=== PATIENT | female | born 1955 | race Caucasian/White ===

== ENCOUNTER 2018-10-06 12:46 | Emergency (ER) | payer BC ==
[2018-10-06 13:07] VITALS: RESP 18
--- NOTE | 2018-10-06 14:10 | ED ---
Psych HPI - General Chief Complaint: Psychiatric Symptoms Stated Complaint: EPS eval Time Seen by Provider: 10/06/18 13:26 Source: patient, RN notes reviewed, old records reviewed Mode of arrival: ambulatory - History of Present Illness Initial Comments: This patient's a 62-year-old female who presents emergency department today with her and son. They brought her here for EPS evaluation. Patient reportedly has been smelling gas smell for the past month and called the police and fire department last night while the house and was sleeping to evaluate the house. They determined it was safe there is no gas leak in the house. Patient states family is just this could be related to a psychiatric reason as to why she smelling this. He also reports she's been having some episodes of labile emotional behavior occasionally acting manic and then later depressed. She's had history of psychiatric illness over 10 years ago. She denies any suicidal or homicidal ideation. She denies any auditory or visual hallucinations. She also reports she is currently being treated for sinus infection. - Related Data Home Medications Medication Instructions Recorded Confirmed Amoxicillin 500 mg PO Q8HR 10/06/18 10/06/18 Baclofen [Lioresal] 10 mg PO HS 10/06/18 10/06/18 Ibuprofen [Motrin Ib] 200 mg PO DAILY PRN 10/06/18 10/06/18 Allergies Allergy/AdvReac Type Severity Reaction Status Date / Time iodine Allergy Rash/Hives Verified 10/06/18 13:33 latex Allergy Rash/Hives Verified 10/06/18 13:33 Review of Systems ROS Statement: Those systems with pertinent positive or pertinent negative responses have been documented in the HPI. ROS Other: All systems not noted in ROS Statement are negative. Past Medical History Past Medical History: No Reported History History of Any Multi-Drug Resistant Organisms: None Reported Past Surgical History: No Surgical Hx Reported Past Psychological History: Depression Smoking Status: Current every day smoker Past Alcohol Use History: None Reported Past Drug Use History: None Reported General Exam - General Exam Comments Initial Comments: This is a 62-year-old female. Alert and oriented 3. No distress. Limitations: no limitations General appearance: alert, in no apparent distress Head exam: Present: atraumatic Eye exam: Present: normal appearance, PERRL, EOMI. Absent: scleral icterus, conjunctival injection, periorbital swelling ENT exam: Present: normal exam, mucous membranes moist Neck exam: Present: normal inspection. Absent: tenderness, meningismus, lymphadenopathy Respiratory exam: Present: normal lung sounds bilaterally. Absent: respiratory distress, wheezes, rales, rhonchi, stridor Cardiovascular Exam: Present: regular rate, normal rhythm, normal heart sounds. Absent: systolic murmur, diastolic murmur, rubs, gallop, clicks GI/Abdominal exam: Present: soft, normal bowel sounds. Absent: distended, tenderness, guarding, rebound, rigid Extremities exam: Present: normal inspection, full ROM, normal capillary refill. Absent: tenderness, pedal edema, joint swelling, calf tenderness Back exam: Present: normal inspection Neurological exam: Present: alert, oriented X3, CN II-XII intact Psychiatric exam: Present: normal affect, normal mood Skin exam: Present: warm, dry, intact, normal color. Absent: rash Course Vital Signs 10/06/18 13:01 Temperature 98.4 F Pulse Rate 85 Respiratory 18 Rate Blood Pressure 166/100 O2 Sat by Pulse 98 Oximetry Medical Decision Making - Medical Decision Making 62-year-old female. - Lab Data Lab Results 10/06/18 Range/Units 12:32 Urine Color Light Yellow Urine Appearance Clear (Clear) Urine pH 5.5 (5.0-8.0) Ur Specific [place] 1.004 (1.001-1.035) Urine Protein Negative (Negative) Urine Glucose (UA) Negative (Negative) Urine Ketones Trace H (Negative) Urine Blood Trace H (Negative) Urine Nitrite Negative (Negative) Urine Bilirubin Negative (Negative) Urine Urobilinogen <2.0 (<2.0) mg/dL Ur Leukocyte Esterase Negative (Negative) Urine RBC <1 (0-5) /hpf Urine Opiates Screen Not Detected (NotDetected) Ur Oxycodone Screen Not Detected (NotDetected) Urine Methadone Screen Not Detected (NotDetected) Ur Propoxyphene Screen Not Detected (NotDetected) Ur Barbiturates Screen Not Detected (NotDetected) U Tricyclic Antidepress Not Detected (NotDetected) Ur Phencyclidine Scrn Not Detected (NotDetected) Ur Amphetamines Screen Not Detected (NotDetected) U Methamphetamines Scrn Not Detected (NotDetected) U Benzodiazepines Scrn Not Detected (NotDetected) Urine Cocaine Screen Not Detected (NotDetected) U Marijuana (THC) Screen Not Detected (NotDetected) - Radiology Data Radiology results: report reviewed No acute injury cranial hemorrhage or midline shift. Mild bilateral frontal lobe atrophy. Chronic bilateral maxillary sinus disease. Disposition Clinical Impression: Sinusitis Disposition: HOME SELF-CARE Condition: Good Instructions (If sedation given, give patient instructions): Sinusitis (ED) Additional Instructions: Patient advised to have close follow-up with primary care physician on Monday. Continue her antibiotics. Apply that amount of antibiotic ointment over the area. Is patient prescribed a controlled substance at d/c from ED?: No Referrals: Christo Helms MD [Primary Care Provider] - 1-2 days Time of Disposition: 15:56
[2018-10-06 14:59] LABS: Appearance,Urine Clear (Clear); Bilirubin,Urine Negative (Negative); Blood,Urine Trace (Negative); Color,Urine Light Yellow; Glucose,Urine (UA) Negative (Negative); Ketones,Urine Trace (Negative); Leukocyte Esterase,Urine Negative (Negative); Nitrite,Urine Negative (Negative); PH, Urine 5.5 (5.0-8.0); Protein,Urine Negative (Negative); RBC,Urine <1 /hpf (0-5); Specific Gravity,Urine 1.004 (1.001-1.035); Urobilinogen,Urine <2.0 mg/dL (<2.0)
--- NOTE | 2018-10-06 15:02 | CT ---
EXAMINATION TYPE: CT brain wo con, CT sinus wo con DATE OF EXAM: 10/06/2018 HISTORY: EPS Eval; Infection odd smells (accession [id number]), Infection and Odd smells (accession [id number]), headache. Fever, facial pain. CT DLP: 1643.2 mGycm. Automated Exposure Control for Dose Reduction was Utilized. TECHNIQUE: CT scan of the head and sinuses are performed without contrast. COMPARISON: None. FINDINGS: There is no acute intracranial hemorrhage or midline shift identified. There is diffuse s ulcal prominence over bilateral frontal lobes consistent with diffuse frontal lobe atrophy. No hydroc ephalus. Birch-white matter differentiation fairly well maintained. Incidental scanning of the neck is performed without obvious abnormality. There is reversal of normal cervical curvature peaking at C5-C6 level with moderate disc space narrowing and advanced anterior s purring. There is moderate disc space narrowing and anterior spurring C6-C7 level also noted. There are small mucous retention cysts or polyps with mild mucosal thickening inferior right maxillar y sinus. There are larger mucous retention cysts or polyps filling the inferior aspect left maxillary sinus. Remainder of paranasal sinuses are clear without suspicious opacification. Ostiomeatal comple xes are patent bilaterally on the coronal images. IMPRESSION: No acute intracranial hemorrhage or midline shift. There is mild bilateral frontal lobe atrophy. There is chronic bilateral maxillary sinus disease.
[2018-10-06 15:08] LABS: Amphetamine Screen,Urine Not Detected (NotDetected); Barbiturate Screen,Urine Not Detected (NotDetected); Benzodiazepines Screen,Urine Not Detected (NotDetected); Cocaine Screen,Urine Not Detected (NotDetected); Methadone Screen, Urine Not Detected (NotDetected); Opiate Screen,Urine Not Detected (NotDetected); Oxycodone Screen, Urine Not Detected (NotDetected); Phencyclidine Screen,Urine Not Detected (NotDetected); Tricyclic Antidepressant,Urine Not Detected (NotDetected); Urn Cannabinoid Scrn Not Detected (NotDetected)
[2018-10-06 16:35] VITALS: BP 152/89; PULSE 88; TEMP 98.2
== END 2018-10-06 16:30 | disposition home or self-care (01) ==
LOC: EC 12:46
DX: J32.0 Chronic maxillary sinusitis (principal); F17.200 Nicotine dependence, unspecified, uncomplicated; Z79.899 Other long term (current) drug therapy; Z91.040 Latex allergy status; Z91.048 Other nonmedicinal substance allergy status
CPT/HCPCS: 70450; 70486; 80306; 81001; 99284

== ENCOUNTER 2023-04-03 15:01 | Inpatient (IN) | payer BC, MEDICARE ==
--- NOTE | 2023-04-03 15:39 | ED ---
SOB HPI - General Source: patient, RN notes reviewed Mode of arrival: wheelchair Limitations: no limitations - History of Present Illness MD Complaint: shortness of breath, cough <Nell Chapa - Last Filed: 04/03/23 15:38> <Ervin Gallegos - Last Filed: 04/03/23 18:21> - General Chief Complaint: Shortness of Breath Stated Complaint: BRODY,Dizziness Time Seen by Provider: 04/03/23 15:35 - History of Present Illness Initial Comments: This is a 67-year-old female who presents to the emergency department for shortness of breath. States that this has been occurring intermittently since January. Believes that part of this is from inhaling the fumes from her burning stove. Reports a productive cough of yellow and green sputum. Denies any chest pain. She does note swelling in her lower extremities. (Nell Chapa) Dictation was produced using [employer] dictation software. please excuse any grammatical, word or spelling errors. Chief Complaint: 67-year-old female past medical history of heart palpitations presents to the ER for shortness of breath History of Present Illness: Patient 67-year-old female she has no significant past medical history that she is aware of. She states she is here in the emergency department shortness of breath. She was seen at primary care physician's office approximately 2 weeks ago for a cough. States that her cough is productive. Primary care doctor prescribed her steroids and Z-Bharath. She states that her symptoms are not improved. She called her doctor today states that her symptoms not getting better. She was instructed to come to the emergency department for further workup. States that she has exertional dyspnea especially when she walks. She notices swelling in her legs. Feels like her symptoms are worse at night and in the morning and improves throughout the day. Denies any cardiac history. The ROS documented in this emergency department record has been reviewed and confirmed by me. Those systems with pertinent positive or negative responses have been documented in the HPI. All other systems are other negative and/or noncontributory. (Ervin Gallegos) - Related Data Home Medications Medication Instructions Recorded Confirmed Amoxicillin 500 mg PO Q8HR 10/06/18 10/06/18 Baclofen [Lioresal] 10 mg PO HS 10/06/18 10/06/18 Ibuprofen [Motrin Ib] 200 mg PO DAILY PRN 10/06/18 10/06/18 Allergies Allergy/AdvReac Type Severity Reaction Status Date / Time iodine Allergy Rash/Hives Verified 04/03/23 15:37 latex Allergy Rash/Hives Verified 04/03/23 15:37 Review of Systems ROS Other: All systems not noted in ROS Statement are negative. <Nell Chapa - Last Filed: 04/03/23 15:38> ROS Other: All systems not noted in ROS Statement are negative. <Ervin Gallegos - Last Filed: 04/03/23 18:21> ROS Statement: Those systems with pertinent positive or pertinent negative responses have been documented in the HPI. Past Medical History Past Medical History: No Reported History History of Any Multi-Drug Resistant Organisms: None Reported Past Surgical History: No Surgical Hx Reported Past Psychological History: Depression Smoking Status: Former smoker Past Alcohol Use History: None Reported Past Drug Use History: None Reported <Nell Chapa - Last Filed: 04/03/23 15:38> General Exam Limitations: no limitations <Nell Chapa - Last Filed: 04/03/23 15:38> <Ervin Gallegos - Last Filed: 04/03/23 18:21> - General Exam Comments Initial Comments: Visual Physical Exam Vital signs reviewed General: Well-appearing, nontoxic, no acute distress. Head: Normocephalic, atraumatic Eyes: PERRLA, EOMI ENT: Airway patent Chest: Nonlabored breathing Skin: No visual rash, normal skin tone Neuro: Alert and oriented 3 Musculoskeletal: No gross abnormalities (Nell Chapa) PHYSICAL EXAM: General Impression: Alert and oriented x3, not in acute distress HEENT: Normocephalic atraumatic, extra-ocular movements intact, pupils equal and reactive to light bilaterally, mucous membranes moist. Cardiovascular: Heart regular rate and rhythm Chest: Able to complete full sentences, no retractions, no tachypnea Abdomen: abdomen soft, non-tender, non-distended, no organomegaly Musculoskeletal: Pulses present and equal in all extremities, n 3+ pitting edema to the bilateral lower extremities Motor: no focal deficits noted Neurological: CN II-XII grossly intact, no focal motor or sensory deficits noted Skin: Intact with no visualized rashes Psych: Normal affect and mood (Ervin Gallegos) Course Vital Signs 04/03/23 15:35 Temperature 98.4 F Pulse Rate 55 L Respiratory 22 Rate Blood Pressure 135/66 O2 Sat by Pulse 96 Oximetry Medical Decision Making <Nell Chapa - Last Filed: 04/03/23 15:38> - Lab Data Result diagrams: 04/03/23 15:38 04/03/23 15:38 <Ervin Gallegos - Last Filed: 04/03/23 18:21> - Medical Decision Making I performed the QuickNote portion of this chart. Signed Nell Chapa PA-C. (Nell Chapa) Was pt. sent in by a medical professional or institution ([facility], WIRE INSULATOR, urgent care, hospital, or fci...) When possible be specific @ -From primary care provider Did you speak to anyone other than the patient for history (EMS, parent, family, police, friend...)? What history was obtained from this source @ -No Did you review nursing and triage notes (agree or disagree)? Why? @ -I reviewed and agree with nursing and triage notes Were old charts reviewed (outside hosp., previous admission, EMS record, old EKG, old radiological studies, urgent care reports/EKG's, fci records)? Report findings @ -No old charts were reviewed Differential Diagnosis (chest pain, altered mental status, abdominal pain women, abdominal pain men, vaginal bleeding, musculoskeletal, weakness, fever, dyspnea, syncope, headache, dizziness, GI bleed, back pain, seizure, CVA, palpatations, mental health)? @ -Differential Dyspnea: Coronary syndrome, arrhythmia, tamponade, asthma, COPD, pulmonary embolism, pneumonia, pneumothorax, pulmonary effusion, anaphylaxis, diabetic ketoacidosis, flailed chest, pulmonary contusion, diaphragmatic rupture, anemia, neuromuscular, this is not meant to be an all-inclusive list. EKG interpreted by me (3pts min.). @ -My EKG interpretation: Ventricular rate 78, sinus rhythm,. 169, QRS 167, QTc 436. No MO prolongation, no QTC prolongation, no ST or T-wave changes noted. Right bundle branch block with PVCs. Overall this EKG is nonspecific X-rays interpreted by me (1pt min.). @ -X-ray shows cardiomegaly CT interpreted by me (1pt min.). @ -None done U/S interpreted by me (1pt. min.). @ -None done What testing was considered but not performed or refused? (CT, X-rays, U/S, labs)? Why? @ -None What meds were considered but not given or refused? Why? @ -None Did you discuss the management of the patient with other professionals (professionals i.e. , PA, WIRE INSULATOR, lab, RT, psych nurse, licensed social worker, java solutions architect, teacher, general service officer, case sealer)? Give summary @ -Case discussed with hospitalist for admission Was smoking cessation discussed for >3mins.? @ -No Was critical care preformed (if so, how long)? @ -Yes, 33 minutes Were there social determinants of health that impacted care today? How? (Homelessness, low income, unemployed, alcoholism, drug addiction, transportation, low edu. Level, literacy, decrease access to med. care, retirement, rehab)? @ -No Was there de-escalation of care discussed even if they declined (Discuss DNR or withdrawal of care, Hospice)? DNR status @ -No What co-morbidities impacted this encounter? (DM, HTN, Smoking, COPD, CAD, Cancer, CVA, ARF, Chemo, Hep., AIDS, mental health diagnosis, sleep apnea, mo rbid obesity)? @ -None Was patient admitted / discharged? Hospital course, mention meds given and r oute, prescriptions, significant lab abnormalities, going to OR and other pertinent info. @ -67-year-old female presents to the emergency department with worsening shortness of breath ongoing for the last several months. She attributes the dyspnea to pneumonia and smoke exposure from woodstove. Vital signs are stable. She is not hypoxic. Not dyspneic at the bedside. She denies any symptoms w hile at rest. She does however have some features of unstable angina with exertional dyspnea. Her physical examination would suggest heart failure. Laboratory evaluation shows BNP of 15,900 with a troponin of 0.459. No old labs for comparison. Rest of labs within acceptable limits. Clinical presentation suggest that patient's dyspnea is secondary to cardiac cause. Patient given Lasix. She is given aspirin and heparin for concerns of unstable angina/nstemi. Patient will be admitted with consultation to cardiology. Undiagnosed new problem with uncertain prognosis? @ -No Drug Therapy requiring intensive monitoring for toxicity (Heparin, Nitro, Insulin, Cardizem)? @ -No Were any procedures done? @ -No Diagnosis/symptom? Acute, or Chronic, or Acute on Chronic? Uncomplicated (without systemic symptoms) or Complicated (systemic symptoms)? @ -new onset cardiomyopathy complicated by elevated troponin Side effects of treatment? @ -No Exacerbation, Progression, or Severe Exacerbation? @ -No Poses a threat to life or bodily function? How? (Chest pain, [place], [place], pneumonia, PE, COPD, DKA, ARF, appy, cholecystitis, CVA, Diverticulitis, Homicidal, Suicidal, threat to staff... and all critical care pts) @ -yes (Ervin Gallegos) - Lab Data Lab Results 04/03/23 04/03/23 04/03/23 Range/Units 15:38 15:38 15:38 WBC 7.9 (3.8-10.6) k/uL RBC 4.76 (3.80-5.40) m/uL Hgb 15.1 (11.4-16.0) gm/dL Hct 44.9 (34.0-46.0) % MCV 94.3 (80.0-100.0) fL MCH 31.7 (25.0-35.0) pg MCHC 33.6 (31.0-37.0) g/dL RDW 13.7 (11.5-15.5) % Plt Count 220 (150-450) k/uL MPV 9.4 Neutrophils % 54 % Lymphocytes % 34 % Monocytes % 7 % Eosinophils % 2 % Basophils % 1 % Neutrophils # 4.2 (1.3-7.7) k/uL Lymphocytes # 2.7 (1.0-4.8) k/uL Monocytes # 0.5 (0-1.0) k/uL Eosinophils # 0.1 (0-0.7) k/uL Basophils # 0.1 (0-0.2) k/uL Hypochromasia Slight PT 11.6 (10.0-12.5) sec INR 1.1 (<1.2) APTT 24.1 (22.0-30.0) sec Sodium 137 (137-145) mmol/L Potassium 3.7 (3.5-5.1) mmol/L Chloride 106 (98-107) mmol/L Carbon Dioxide 26 (22-30) mmol/L Anion Gap 5 mmol/L BUN 14 (7-17) mg/dL Creatinine 0.72 (0.52-1.04) mg/dL Est GFR (CKD-EPI)AfAm >90 (>60 ml/min/1.73 sqM) Est GFR (CKD-EPI)NonAf 88 (>60 ml/min/1.73 sqM) Glucose 94 (74-99) mg/dL Plasma Lactic Acid [place] (0.7-2.0) mmol/L Calcium 9.0 (8.4-10.2) mg/dL Total Bilirubin 0.8 (0.2-1.3) mg/dL AST 42 H (14-36) U/L ALT 40 H (4-34) U/L Alkaline Phosphatase 77 (38-126) U/L Troponin I (0.000-0.034) ng/mL NT-Pro-B Natriuret Pep 52742 pg/mL Total Protein 6.0 L (6.3-8.2) g/dL Albumin 3.3 L (3.5-5.0) g/dL Influenza Type A (PCR) (Not Detectd) Influenza Type B (PCR) (Not Detectd) RSV (PCR) (Not Detectd) SARS-CoV-2 (PCR) (Not Detectd) 04/03/23 04/03/23 04/03/23 Range/Units 15:38 15:38 15:38 WBC (3.8-10.6) k/uL RBC (3.80-5.40) m/uL Hgb (11.4-16.0) gm/dL Hct (34.0-46.0) % MCV (80.0-100.0) fL MCH (25.0-35.0) pg MCHC (31.0-37.0) g/dL RDW (11.5-15.5) % Plt Count (150-450) k/uL MPV Neutrophils % % Lymphocytes % % Monocytes % % Eosinophils % % Basophils % % Neutrophils # (1.3-7.7) k/uL Lymphocytes # (1.0-4.8) k/uL Monocytes # (0-1.0) k/uL Eosinophils # (0-0.7) k/uL Basophils # (0-0.2) k/uL Hypochromasia PT (10.0-12.5) sec INR (<1.2) APTT (22.0-30.0) sec Sodium (137-145) mmol/L Potassium (3.5-5.1) mmol/L Chloride (98-107) mmol/L Carbon Dioxide (22-30) mmol/L Anion Gap mmol/L BUN (7-17) mg/dL Creatinine (0.52-1.04) mg/dL Est GFR (CKD-EPI)AfAm (>60 ml/min/1.73 sqM) Est GFR (CKD-EPI)NonAf (>60 ml/min/1.73 sqM) Glucose (74-99) mg/dL Plasma Lactic Acid [place] 1.1 (0.7-2.0) mmol/L Calcium (8.4-10.2) mg/dL Total Bilirubin (0.2-1.3) mg/dL AST (14-36) U/L ALT (4-34) U/L Alkaline Phosphatase (38-126) U/L Troponin I 0.459 H* (0.000-0.034) ng/mL NT-Pro-B Natriuret Pep pg/mL Total Protein (6.3-8.2) g/dL Albumin (3.5-5.0) g/dL Influenza Type A (PCR) Not Detected (Not Detectd) Influenza Type B (PCR) Not Detected (Not Detectd) RSV (PCR) Not Detected (Not Detectd) SARS-CoV-2 (PCR) Not Detected (Not Detectd) Disposition <Nell Chapa - Last Filed: 04/03/23 15:38> Decision Time: 18:21 <Ervin Gallegos - Last Filed: 04/03/23 18:21> Clinical Impression: NSTEMI (non-ST elevated myocardial infarction), New onset of congestive heart failure Disposition: ADMITTED IP TO THIS HOSP Condition: Serious Referrals: Christo Helms MD [Primary Care Provider] - 1-2 days
--- NOTE | 2023-04-03 16:25 | XR ---
EXAMINATION TYPE: XR chest 2V DATE OF EXAM: 04/03/2023 COMPARISON: None INDICATION: Difficulty breathing DIPs and dizziness TECHNIQUE: Frontal and lateral views of the chest are obtained. FINDINGS: The heart size is markedly enlarged. The pulmonary vasculature is normal. The lungs are clear. IMPRESSION: 1. No acute pulmonary process. 2. Marked cardiomegaly
[2023-04-03 17:35] LABS: Basophils # (A) 0.1 k/uL (0-0.2); Basophils % (A) 1 %; Eosinophils # (A) 0.1 k/uL (0-0.7); Eosinophils % (A) 2 %; HCT 44.9 % (34.0-46.0); HGB 15.1 gm/dL (11.4-16.0); Hypochromasia Slight; INR 1.1 (<1.2); Lymphocytes # (A) 2.7 k/uL (1.0-4.8); Lymphocytes % (A) 34 %; MCH 31.7 pg (25.0-35.0); MCHC 33.6 g/dL (31.0-37.0); MCV 94.3 fL (80.0-100.0); Mean Platelet Volume 9.4; Monocytes # (A) 0.5 k/uL (0-1.0); Monocytes % (A) 7 %; Neutrophils # (A) 4.2 k/uL (1.3-7.7); Neutrophils % (A) 54 %; Partial Thromboplastin Time 24.1 sec (22.0-30.0); Platelet Count 220 k/uL (150-450); Prothrombin Time 11.6 sec (10.0-12.5); RBC 4.76 m/uL (3.80-5.40); RDW 13.7 % (11.5-15.5); WBC 7.9 k/uL (3.8-10.6)
[2023-04-03 17:44] LABS: ALT 40 U/L (4-34); AST 42 U/L (14-36); African American GFR (CKD) >90 (>60 ml/min/1.73 sqM); Albumin 3.3 g/dL (3.5-5.0); Alkaline Phosphatase 77 U/L (38-126); Anion Gap 5 mmol/L; Blood Urea Nitrogen 14 mg/dL (7-17); Carbon Dioxide 26 mmol/L (22-30); Chloride 106 mmol/L (98-107); Glucose 94 mg/dL (74-99); Non-African American GFR(CKD) 88 (>60 ml/min/1.73 sqM); Potassium 3.7 mmol/L (3.5-5.1); Sodium 137 mmol/L (137-145); Total Bilirubin 0.8 mg/dL (0.2-1.3)
[2023-04-03 17:49] LABS: NT-Pro-B-Type Natriuretic Pept 15900 pg/mL
[2023-04-03] MEDS ORDERED: HEPARIN SODIUM 1,000 UN/ML (10ML VL) IV PRN (18:14)
[2023-04-03] MEDS ORDERED: ASPIRIN 81 MG PO STA (18:14)
[2023-04-03] MEDS ORDERED: FUROSEMIDE 10 MG/ML 4 ML VIAL IV STA (18:14)
[2023-04-03] MEDS ORDERED: HEPARIN SODIUM 1,000 UN/ML (10ML VL) IV ONE (18:14)
[2023-04-03] MEDS ORDERED: NITROGLYCERIN SL TABS 0.4 MG TAB SUBLINGUAL PRN (18:15)
[2023-04-03] MEDS: HEPARIN SOD,PORK IN 0.45% NACL 25,000 UNIT in 0.45% NACL 1 250ML.BAG IV SCH (18:59)
--- NOTE | 2023-04-04 07:09 | P.HPIM ---
History of Present Illness This is a pleasant 67 years old female with no significant past medical history Presents because of shortness of breath and difficulty breathing on and off since last January, because she is not getting better and she cares for her family she decided to come to the hospital this time. Patient has occasional coughing but she denies chest pain She denies abdominal pain or other GI symptoms. No change in urine habits. No headache dizziness weakness numbness She denies smoking alcohol or illicit drugs. Vitals stable Labs are unremarkable including CBC INR, BMP, LFTs. Troponin is elevated at 0.4, 0.4, 0.56. ProBNP is elevated at 15 900 Influenza A and type B, RSV, SARS (coronavirus) are and detected Chest x-ray: No acute process with marked cardiomegaly, I reviewed chest x-ray myself and agree EKG showing sinus rhythm with no significant ST T changes rate at 78 but QTC elevated 536. Review of Systems Review of systems CONSTITUTIONAL: No fever, no malaise, no fatigue. HEENT: No recent visual problems or hearing problems. Denied any sore throat. CARDIOVASCULAR: No orthopnea, PND, no palpitations, no syncope. PULMONARY: , no chest wall tenderness, no hemoptysis. GASTROINTESTINAL: No diarrhea, no nausea, no vomiting, no abdominal pain. Normoactive bowel sounds. NEUROLOGICAL: No headaches, no weakness, no numbness. HEMATOLOGICAL: Denies any bleeding or petechiae. GENITOURINARY: Denies any burning micturition, frequency, or urgency. MUSCULOSKELETAL/RHEUMATOLOGICAL: Denies any joint pain, swelling, or any muscle pain. ENDOCRINE: Denies any polyuria or polydipsia. Past Medical History Past Medical History: No Reported History History of Any Multi-Drug Resistant Organisms: None Reported Past Surgical History: No Surgical Hx Reported Past Anesthesia/Blood Transfusion Reactions: No Reported Reaction Past Psychological History: Depression Smoking Status: Former smoker Past Alcohol Use History: None Reported Past Drug Use History: None Reported Medications and Allergies Home Medications Medication Instructions Recorded Confirmed Type Cyanocobalamin [Vitamin B-12] 500 mcg PO DAILY 04/03/23 04/03/23 History Losartan/Hydrochlorothiazide 1 tab PO DAILY 04/03/23 04/03/23 History [Losartan-Hctz 50-12.5 mg Tab] Multivitamins, Thera [Multivitamin 1 tab PO DAILY 04/03/23 04/03/23 History (formulary)] Allergies Allergy/AdvReac Type Severity Reaction Status Date / Time iodine Allergy Rash/Hives Verified 04/03/23 19:02 latex Allergy Rash/Hives Verified 04/03/23 19:02 Physical Exam Vitals: Vital Signs Temp Pulse Pulse Resp BP BP Pulse Ox 04/04/23 04:00 80 18 136/91 98 04/04/23 00:00 98.1 F 82 18 129/86 99 04/03/23 22:30 79 16 104/79 98 04/03/23 19:06 115/99 04/03/23 18:51 97.7 F 74 18 94 L 04/03/23 15:35 98.4 F 55 L 22 135/66 96 Intake and Output 04/03/23 04/03/23 04/04/23 14:59 22:59 06:59 Other: # Voids 2 Weight 65.771 kg 65.771 kg GENERAL: The patient is alert and oriented x3, not in any acute distress. Well developed, well nourished. HEENT: Pupils are round and equally reacting to light. EOMI. No scleral icterus. No conjunctival pallor. Normocephalic, atraumatic. No pharyngeal erythema. No thyromegaly. CARDIOVASCULAR: S1 and S2 present. No murmurs, rubs, or gallops. PULMONARY: Chest is clear to auscultation, no wheezing , no crackles. ABDOMEN: Soft, nontender, nondistended, normoactive bowel sounds. No palpable organomegaly. MUSCULOSKELETAL: No joint swelling or deformity. -EXTREMITIES: No cyanosis, clubbing, bilateral pitting leg edema. NEUROLOGICAL: Gross neurological examination did not reveal any focal deficits. SKIN: No rashes. no petechiae. Results CBC & Chem 7: 04/03/23 15:38 04/03/23 15:38 Labs: Abnormal Lab Results - Last 24 Hours (Table) 04/03/23 04/03/23 04/03/23 Range/Units 15:38 15:38 19:11 APTT (22.0-30.0) sec AST 42 H (14-36) U/L ALT 40 H (4-34) U/L Troponin I 0.459 H* 0.477 H* (0.000-0.034) ng/mL Total Protein 6.0 L (6.3-8.2) g/dL Albumin 3.3 L (3.5-5.0) g/dL 04/03/23 04/04/23 Range/Units 22:01 00:28 APTT 46.8 H (22.0-30.0) sec AST (14-36) U/L ALT (4-34) U/L Troponin I 0.560 H* (0.000-0.034) ng/mL Total Protein (6.3-8.2) g/dL Albumin (3.5-5.0) g/dL Thrombosis Risk Factor Assmnt - Choose All That Apply Any of the Below Risk Factors Present?: No Other Risk Factors: Yes Each Risk Factor Represents 2 Points: Age 61-74 years Thrombosis Risk Factor Assessment Total Risk Factor Score: 2 Thrombosis Risk Factor Assessment Level: Low Risk Assessment and Plan Assessment: Acute non-STEMI Possible acute CHF exacerbation Prolonged QTc Hypertension Bilateral pitting leg edema secondary to above Plan: Continue with heparin drip Continue with aspirin Cancer losartan/hydrochlorothiazide Cardiology consult Check echocardiogram Check ultrasound of the legs Start IV Lasix 40 mg daily Labs and medication were reviewed.. Continue same treatment. Continue with symptomatic treatment. Resume home medication. Monitor labs and vitals. DVT and GI prophylaxis. Further recommendations as per clinical course of the patient DVT prophylaxis: heparin GI Prophylaxis: Pepcid Prognosis is guarded
--- NOTE | 2023-04-04 07:48 | US ---
EXAMINATION TYPE: US venous doppler duplex LE DATE OF EXAM: 04/04/2023 7:08 AM COMPARISON: NONE CLINICAL INDICATION: Female, 67 years old with history of leg swelling; Patient denies any other sign s/symptoms/relevant history SIDE PERFORMED: Bilateral TECHNIQUE: The lower extremity deep venous system is examined utilizing real time linear array sonog evan with graded compression, doppler sonography and color-flow sonography. VESSELS IMAGED: Common Femoral Vein Deep Femoral Vein Greater Saphenous Vein * Femoral Vein Popliteal Vein Small Saphenous Vein * Proximal Calf Veins (* superficial vessels) Right Leg: Negative for DVT Left Leg: Negative for DVT IMPRESSION: Grayscale, color doppler, spectral doppler imaging performed of the deep veins of the lo wer extremities. There is normal flow, compressibility, vascular waveforms.
[2023-04-04] MEDS ORDERED: ASPIRIN 325 MG TAB PO SCH (09:00)
[2023-04-04] MEDS: FUROSEMIDE 10 MG/ML 4 ML VIAL IV SCH (10:29)
[2023-04-04] MEDS: LOSARTAN-HCTZ 50-12.5 MG 1 EACH TAB PO SCH (10:30)
[2023-04-04] MEDS: FAMOTIDINE 20 MG/2 ML VIAL IV SCH ×2 (10:37→20:35)
--- NOTE | 2023-04-04 11:35 | P.CRDCN ---
History of Present Illness Consult date: 04/04/23 Reason for Consult (text): NSTEMI, HF History of present illness: History of present illness: This is a 67-year-old female patient with no previous cardiac history and has not had a cardiac workup in the past. She has a past medical history of hypertension. Patient states that she has had difficulty breathing since mid January and thought it was mostly related to inhaling cold air. The shortness of breath comes and goes according to the coldest outside. She also complains of a sinus infection. She denies any fever or chills. She has had a cough. No production. She has had weight increase and also lower extremity edema. Jesse serra also complains of leg cramps that are chronic but seem to be better this morning after she has had improvement of the edema. She denies any alcohol use. She was a smoker and quit in fall 2022. Patient seen today in the emergency center waiting for bed on the cardiac stepdown unit. We have been asked to evaluate patient for heart failure non-ST MA. Patient has been started on IV Lasix 40 mg daily and heparin drip. EKG sinus rhythm with right bundle branch block, PVCs Chest x-ray: No acute finding. Marked cardiomegaly. Duplex ultrasound of the lower extremities negative for DVT. CBC, INR, electrolytes and renal function within normal limits. AST 42, ALT 40, alkaline phosphatase 77. Troponin 0.459, 0.477, 0.56. proBNP 15,900. Influenza A, influenza B, RSV, COVID-19 not detected. Home cardiac medications: Losartan/hydrochlorothiazide 50-12.5 mg daily Review Of Systems: At the time of my evaluation: Constitutional: No fever, no chills. No weakness, fatigue or lethargy. EENT: No headache. No dizziness. Lungs: + shortness of breath, + cough, no sputum production. No wheezing. Cardiovascular: No chest pain, + lower extremity edema. No palpitations. No paroxysmal nocturnal dyspnea. No orthopnea. No lightheadedness or dizziness. No syncopal episodes. Abdominal: No abdominal pain. No nausea, vomiting. No diarrhea. No constipation. No bloody or tarry stools. Genitourinary: No dysuria. No urinary retention. Musculoskeletal: No myalgias. No muscle weakness, no frequent falls. Integumentary: No wounds. No rash. No unusual bruising. Neurologic: No aphasia. No facial droop. No change in mentation. Physical examination: Gen: This is a 67-year-old female resting and appears to be in no acute distress VS: reviewed HEENT: Head is atraumatic, normocephalic. Pupils equal, round. Sclerae is anicteric. NECK: Supple. No JVD. LUNGS: Diminished breath sounds. No intercostal retractions. HEART: Regular rate and rhythm. No murmur. ABDOMEN: Soft No tenderness. EXTREMITIES: 2+ pedal edema. No calf tenderness. NEUROLOGICAL: Patient is awake, alert and oriented x3. Assessment: Acute heart failure, echocardiogram is pending NSTEMI Hypertension Plan: Continue patient on Heparin gtt for total of 48 hours Continue IV Lasix 40 mg daily Monitor I&O, daily weights, electrolytes and renal function Start patient on aspirin 81 mg daily, atorvastatin 40 mg at bedtime and metoprolol 12.5 mg twice daily Obtain 2-D echocardiogram and Doppler study to assess cardiac structure and function Discussed with patient the need for cardiac catheterization most likely will be performed in 2 days once her respiratory status is stabilized. No the patient does have an allergy to iodine which causes itching. Further recommendations to follow based upon clinical course Thank you kindly for this consultation. Nurse practitioner note has been reviewed, I agree with documented findings and plan of care. Patient was seen and examined. Past Medical History Past Medical History: No Reported History History of Any Multi-Drug Resistant Organisms: None Reported Past Surgical History: No Surgical Hx Reported Past Anesthesia/Blood Transfusion Reactions: No Reported Reaction Past Psychological History: Depression Smoking Status: Former smoker Past Alcohol Use History: None Reported Past Drug Use History: None Reported Medications and Allergies Home Medications Medication Instructions Recorded Confirmed Type Cyanocobalamin [Vitamin B-12] 500 mcg PO DAILY 04/03/23 04/03/23 History Losartan/Hydrochlorothiazide 1 tab PO DAILY 04/03/23 04/03/23 History [Losartan-Hctz 50-12.5 mg Tab] Multivitamins, Thera [Multivitamin 1 tab PO DAILY 04/03/23 04/03/23 History (formulary)] Allergies Allergy/AdvReac Type Severity Reaction Status Date / Time iodine Allergy Rash/Hives Verified 04/03/23 19:02 latex Allergy Rash/Hives Verified 04/03/23 19:02 Physical Exam Vitals: Vital Signs Temp Pulse Pulse Resp BP BP Pulse Ox 04/04/23 04:00 80 18 136/91 98 04/04/23 00:00 98.1 F 82 18 129/86 99 04/03/23 22:30 79 16 104/79 98 04/03/23 19:06 115/99 04/03/23 18:51 97.7 F 74 18 94 L 04/03/23 15:35 98.4 F 55 L 22 135/66 96 Intake and Output 04/03/23 04/04/23 04/04/23 22:59 06:59 14:59 Other: # Voids 2 Weight 65.771 kg 65.771 kg Results 04/03/23 15:38 04/03/23 15:38 Cardiac Enzymes 04/03/23 04/03/23 04/03/23 Range/Units 15:38 15:38 19:11 AST 42 H (14-36) U/L Troponin I 0.459 H* 0.477 H* (0.000-0.034) ng/mL 04/03/23 Range/Units 22:01 AST (14-36) U/L Troponin I 0.560 H* (0.000-0.034) ng/mL Coagulation 04/03/23 04/04/23 Range/Units 15:38 00:28 PT 11.6 (10.0-12.5) sec APTT 24.1 46.8 H (22.0-30.0) sec CBC 04/03/23 Range/Units 15:38 WBC 7.9 (3.8-10.6) k/uL RBC 4.76 (3.80-5.40) m/uL Hgb 15.1 (11.4-16.0) gm/dL Hct 44.9 (34.0-46.0) % Plt Count 220 (150-450) k/uL Comprehensive Metabolic Panel 04/03/23 Range/Units 15:38 Sodium 137 (137-145) mmol/L Potassium 3.7 (3.5-5.1) mmol/L Chloride 106 (98-107) mmol/L Carbon Dioxide 26 (22-30) mmol/L BUN 14 (7-17) mg/dL Creatinine 0.72 (0.52-1.04) mg/dL Glucose 94 (74-99) mg/dL Calcium 9.0 (8.4-10.2) mg/dL AST 42 H (14-36) U/L ALT 40 H (4-34) U/L Alkaline Phosphatase 77 (38-126) U/L Total Protein 6.0 L (6.3-8.2) g/dL Albumin 3.3 L (3.5-5.0) g/dL Current Medications Generic Name Dose Route Start Last Admin Trade Name Freq PRN Reason Stop Dose Admin Aspirin 325 mg 04/04/23 09:00 Aspirin 325 Mg Tab PO DAILY [facility] Famotidine 20 mg 04/04/23 09:00 Famotidine 20 Mg/2 Ml Vial IV Q12HR [facility] Furosemide 40 mg 04/04/23 09:00 Furosemide 10 Mg/Ml 4 Ml Vial IV DAILY [facility] HCTZ/Losartan Potassium 1 each 04/04/23 09:00 Losartan-Hctz 50-12.5 Mg 1 Each Tab PO DAILY [facility] Heparin Sodium (Porcine) 0 unit 04/03/23 18:14 Heparin Sodium 1,000 Un/Ml (10ml Vl) IV PER PROTOCOL PRN Low PTT Protocol Heparin Sodium/Sodium Chloride 250 mls @ 7.893 mls/hr 04/03/23 18:15 04/03/23 18:59 25,000 unit/ Sodium Chloride IV 12 units/kg/hr .Q24H [facility] 7.893 mls/hr Administration Protocol 12 UNITS/KG/HR Nitroglycerin 0.4 mg 04/03/23 18:15 Nitroglycerin Sl Tabs 0.4 Mg Tab SUBLINGUAL Q5M PRN Chest Pain Intake and Output 04/03/23 04/04/23 04/04/23 22:59 06:59 14:59 Other: # Voids 2 Weight 65.771 kg 65.771 kg 04/03/23 15:38 04/03/23 15:38
--- NOTE | 2023-04-04 12:37 | CA ---
Transthoracic Echo Report Name: Park Webb Age: 67 Gender: F : 1955 Exam Date: 04/04/2023 09:43 Exam Location: [facility] Ht (in): 65 Wt (lb): 145 Ordering Physician: Brendan Monteiro MD Attending/Referring Phys: [id number], Cayetano Lineman A Class Desmond Varma RDCS Procedure CPT: Indications: Rule out heart disease Cardiac Hx: Technical Quality: Fair Contrast 1: Total Dose (mL): Contrast 2: Total Dose (mL): MEASUREMENTS (Male / Female) Normal Values 2D ECHO LV Diastolic Diameter PLAX 7.0 cm 4.2 - 5.9 / 3.9 - 5.3 cm LV Systolic Diameter PLAX 6.6 cm IVS Diastolic Thickness 1.0 cm 0.6 - 1.0 / 0.6 - 0.9 cm LVPW Diastolic Thickness 1.4 cm 0.6 - 1.0 / 0.6 - 0.9 cm LV Relative Wall Thickness 0.3 RV Internal Dim ED PLAX 3.9 cm LVOT Diameter 2.3 cm Aortic Root Diameter 2.9 cm LA Systolic Diameter LX 2.8 cm 3.0 - 4.0 / 2.7 - 3.8 cm LV Diastolic Volume MOD BP 167.6 cm??? 67 - 155 / 56 - 104 cm??? LV Systolic Volume MOD BP 135.3 cm??? 22 - 58 / 19 - 49 cm??? LV Ejection Fraction MOD BP 19.3 % >= 55 % LV Cardiac Index MOD BP 1333.0 cm???/min???m??? LV Diastolic Volume MOD 4C 151.6 cm??? LV Systolic Volume MOD 4C 123.0 cm??? LV Ejection Fraction MOD 4C 18.8 % LV Cardiac Index MOD 4C 1178.1 cm???/min???m??? LV Diastolic Length 4C 7.6 cm LV Systolic Length 4C 7.6 cm LV Diastolic Volume MOD 2C 173.8 cm??? LV Systolic Volume MOD 2C 143.6 cm??? LV Ejection Fraction MOD 2C 17.4 % LV Cardiac Index MOD 2C 1245.6 cm???/min???m??? LV Diastolic Length 2C 8.2 cm LV Systolic Length 2C 7.9 cm LA Volume 102.5 cm??? 18 - 58 / 22 - 52 cm??? LA Volume Index 58.7 cm???/m??? 16 - 28 cm???/m??? DOPPLER AV Peak Velocity 118.1 cm/s AV Peak Gradient 5.6 mmHg LVOT Peak Velocity 39.4 cm/s LVOT Peak Gradient 0.6 mmHg LVOT Velocity Time Integral 6.6 cm LVOT Stroke Volume 26.8 cm??? LVOT Stroke Volume Index 15.5 ml/m??? LVOT Cardiac Index 1104.3 cm???/min???m??? AV Area Cont Eq pk 1.4 cm??? MV Peak Velocity 93.4 cm/s MV Peak Gradient 3.5 mmHg MV Mean Velocity 43.8 cm/s MV Mean Gradient 0.9 mmHg MV Velocity Time Integral 23.8 cm Mitral E Point Velocity 71.9 cm/s Mitral A Point Velocity 62.5 cm/s Mitral E to A Ratio 1.2 MV Deceleration Time 182.6 ms MV E' Velocity 3.7 cm/s Mitral E to MV E' Ratio 19.6 TR Peak Velocity 263.5 cm/s TR Peak Gradient 27.8 mmHg Right Ventricular Systolic Press 32.8 mmHg PV Peak Velocity 65.9 cm/s PV Peak Gradient 1.7 mmHg FINDINGS Left Ventricle Severe left ventricular dilatation. Normal wall thickness. Severely reduced LV systolic function Left ventricular ejection fraction is estimated at15-20 %. Right Ventricle Normal right ventricular size. RVSP= 33mmHg. Right Atrium Normal right atrial size. Left Atrium Severe left atrial dilatation. LA volume index= 59ml/m2 Mitral Valve Structurally normal mitral valve. Moderate MR. Aortic Valve Mild AV calcification/sclerosis. No aortic stenosis. No aortic regurgitation. LVOT stroke-volume 27 mL Tricuspid Valve Structurally normal tricuspid valve. Moderate TR. Pulmonic Valve Pulmonic valve not well visualized. Mild PI. Pericardium Grossly normal pericardium. Aorta Normal size aortic root. CONCLUSIONS Severe left ventricular dilatation. Severely reduced LV systolic function Left ventricular ejection fraction is estimated at 15-20 %. Severe left atrial dilatation. Moderate functional mitral regurgitation Dilated IVC and is non collapisble Previewed by: Dr Mckinley Anderson (Electronically Signed) Final Date: 04 April 2023 12:37
[2023-04-04] MEDS: METOPROLOL TARTRATE 12.5 MG TAB PO SCH ×2 (13:00→20:34)
[2023-04-04 13:44] LABS: Chol/HDL Ratio 2.82 Ratio; LDL Cholesterol,Calculated 78.3 mg/dL (0.0-131.0); VLDL Calculation 12.12 mg/dL (5.00-40.00)
[2023-04-04] MEDS: ATORVASTATIN 40 MG TAB PO SCH (20:34)
[2023-04-05] MEDS: HEPARIN SOD,PORK IN 0.45% NACL 25,000 UNIT in 0.45% NACL 1 250ML.BAG IV SCH (01:45)
[2023-04-05 07:07] LABS: ALT 32 U/L (4-34); AST 44 U/L (14-36); African American GFR (CKD) 68 (>60 ml/min/1.73 sqM); Alkaline Phosphatase 77 U/L (38-126); Anion Gap 6 mmol/L; Blood Urea Nitrogen 19 mg/dL (7-17); Calcium 8.5 mg/dL (8.4-10.2); Carbon Dioxide 29 mmol/L (22-30); Chloride 104 mmol/L (98-107); Glucose 110 mg/dL (74-99); Non-African American GFR(CKD) 59 (>60 ml/min/1.73 sqM); Potassium 3.2 mmol/L (3.5-5.1); Sodium 139 mmol/L (137-145); Total Bilirubin 0.8 mg/dL (0.2-1.3); Total Protein 5.7 g/dL (6.3-8.2)
[2023-04-05] MEDS: FUROSEMIDE 10 MG/ML 4 ML VIAL IV SCH ×3 (08:26→19:51)
[2023-04-05] MEDS: ASPIRIN 81 MG PO SCH (08:26)
[2023-04-05] MEDS: FAMOTIDINE 20 MG/2 ML VIAL IV SCH ×2 (08:26→19:49)
[2023-04-05] MEDS: LOSARTAN-HCTZ 50-12.5 MG 1 EACH TAB PO SCH (08:26)
[2023-04-05] MEDS: METOPROLOL TARTRATE 12.5 MG TAB PO SCH ×2 (08:26→19:49)
[2023-04-05] MEDS ORDERED: Magnesium Replacement Protocol 1 EACH MISC MISCELLANE PRN (09:51)
[2023-04-05] MEDS ORDERED: Potassium Replacement Protocol 1 EACH MISC MISCELLANE PRN (09:51)
--- NOTE | 2023-04-05 11:11 | P.PN ---
Subjective This is a pleasant 67 years old female with no significant past medical history Presents because of shortness of breath and difficulty breathing on and off since last January, because she is not getting better and she cares for her family she decided to come to the hospital this time. Patient has occasional coughing but she denies chest pain She denies abdominal pain or other GI symptoms. No change in urine habits. No headache dizziness weakness numbness She denies smoking alcohol or illicit drugs. Vitals stable Labs are unremarkable including CBC INR, BMP, LFTs. Troponin is elevated at 0.4, 0.4, 0.56. ProBNP is elevated at 15 900 Influenza A and type B, RSV, SARS (coronavirus) are and detected Chest x-ray: No acute process with marked cardiomegaly, I reviewed chest x-ray myself and agree EKG showing sinus rhythm with no significant ST T changes rate at 78 but QTC elevated 536. 04/05/2023 Patient is awake alert No chest pain, dyspnea is better Remains on heparin drip Remains on IV Lasix once daily Creatinine is stable and within the reference range Echocardiogram showing low ejection fraction 15-20% with moderate mitral regu rgitation [employer] are planning for cardiac cath in 24-48 hours Plan discussed with patient and she is agreeable Objective - Vital Signs Vital signs: Vital Signs Temp 97.6 F 04/05/23 08:00 Pulse 67 04/05/23 09:36 Resp 16 04/05/23 09:36 BP 111/67 04/05/23 08:00 Pulse Ox 98 04/05/23 08:00 FiO2 Intake & Output 04/04/23 04/05/23 04/05/23 18:59 06:59 18:59 Intake Total 448.696 183.304 240 Output Total 1300 Balance 448.696 183.304 -1060 Weight 61.8 kg Intake: Intake, IV Titration 208.696 65.304 Amount Heparin Sod,Pork in 0.45% 208.696 65.304 NaCl 25,000 unit In 0.45 % NaCl 1 250ml.bag @ 12 UNITS/KG/HR 7.893 mls/hr IV .Q24H [facility] Rx#: [id number] Oral 240 118 240 Output: Urine 1300 Other: Voiding Method Toilet Toilet # Voids 2 1 - Exam GENERAL: The patient is alert and oriented x3, not in any acute distress. Well developed, well nourished. HEENT: Pupils are round and equally reacting to light. EOMI. No scleral icterus. No conjunctival pallor. Normocephalic, atraumatic. No pharyngeal erythema. No thyromegaly. CARDIOVASCULAR: S1 and S2 present. No murmurs, rubs, or gallops. PULMONARY: Chest is clear to auscultation, no wheezing , no crackles. ABDOMEN: Soft, nontender, nondistended, normoactive bowel sounds. No palpable organomegaly. MUSCULOSKELETAL: No joint swelling or deformity. EXTREMITIES: No cyanosis, clubbing, or pedal edema. NEUROLOGICAL: Gross neurological examination did not reveal any focal deficits. SKIN: No rashes. no petechiae. - Labs CBC & Chem 7: 04/03/23 15:38 04/05/23 06:16 Labs: Abnormal Lab Results - Last 24 Hours (Table) 04/04/23 04/05/23 04/05/23 Range/Units 17:47 00:31 06:16 APTT 36.9 H 54.5 H 60.7 H (22.0-30.0) sec Potassium (3.5-5.1) mmol/L BUN (7-17) mg/dL Glucose (74-99) mg/dL AST (14-36) U/L Total Protein (6.3-8.2) g/dL Albumin (3.5-5.0) g/dL 04/05/23 Range/Units 06:16 APTT (22.0-30.0) sec Potassium 3.2 L (3.5-5.1) mmol/L BUN 19 H (7-17) mg/dL Glucose 110 H (74-99) mg/dL AST 44 H (14-36) U/L Total Protein 5.7 L (6.3-8.2) g/dL Albumin 3.0 L (3.5-5.0) g/dL Assessment and Plan Assessment: Acute non-STEMI acute CHF exacerbation, systolic with ejection fraction 15-20% Prolonged QTc Hypertension Bilateral pitting leg edema secondary to above Plan: Continue with heparin drip Continue with aspirin Continue losartan/hydrochlorothiazide Continue IV Lasix 40 mg once daily Cardiology consult clinic for cardiac cath Labs and medication were reviewed.. Continue same treatment. Continue with symptomatic treatment. Resume home medication. Monitor labs and vitals. DVT and GI prophylaxis. Further recommendations as per clinical course of the patient DVT prophylaxis: heparin GI Prophylaxis: Pepcid Prognosis is guarded
[2023-04-05] MEDS ORDERED: ALPRAZolam 0.5 MG TAB PO PRN (15:22)
[2023-04-05] MEDS ORDERED: ALPRAZolam 0.25 MG TAB PO PRN (15:22)
[2023-04-05] MEDS ORDERED: NITROGLYCERIN SL TABS 0.4 MG TAB SUBLINGUAL PRN (15:22)
--- NOTE | 2023-04-05 15:28 | P.PN ---
Subjective Progress Note Date: 04/05/23 Reason for Consult (text): NSTEMI, HF History of present illness: History of present illness: This is a 67-year-old female patient with no previous cardiac history and has not had a cardiac workup in the past. She has a past medical history of hyperte nsion. Patient states that she has had difficulty breathing since mid January and thought it was mostly related to inhaling cold air. The shortness of breath comes and goes according to the coldest outside. She also complains of a sinus infection. She denies any fever or chills. She has had a cough. No production. She has had weight increase and also lower extremity edema. Patient also complains of leg cramps that are chronic but seem to be better this morning after she has had improvement of the edema. She denies any alcohol use. She was a smoker and quit in fall 2022. Patient seen today in the emergency center waiting for bed on the cardiac stepdown unit. We have been asked to evaluate patient for heart failure non-ST [place]. Patient has been started on IV Lasix 40 mg daily and heparin drip. EKG sinus rhythm with right bundle branch block, PVCs Chest x-ray: No acute finding. Marked cardiomegaly. Duplex ultrasound of the lower extremities negative for DVT. CBC, INR, electrolytes and renal function within normal limits. AST 42, ALT 40, alkaline phosphatase 77. Troponin 0.459, 0.477, 0.56. proBNP 15,900. Influenza A, influenza B, RSV, COVID-19 not detected. Home cardiac medications: Losartan/hydrochlorothiazide 50-12.5 mg daily 04/05 Patient is seen today in follow-up on the cardiac stepdown unit. Patient has been maintained on heparin drip as well as IV Lasix 40 mg daily. Yesterday, patient was started on aspirin, atorvastatin and metoprolol. Blood pressure 105/65, heart rate is in the 60s. Potassium 3.2, sodium 139, BUN 19 creatinine 0.99. AST 99. Triglycerides 60, cholesterol 140, LDL 70, HDL 49. Reviewed results of echocardiogram with the patient and recommendations for cardiac catheterization which patient is in agreement to perform. Echocardiogram reveals EF of 15 to 20%, severe left ventricular dilatation, severely reduced LV systolic function, severe left atrial dilatation, moderate functional mitral regurgitation, dilated IVC and is not collapsible. Physical examination: Gen: This is a 67-year-old female resting and appears to be in no acute distress VS: reviewed HEENT: Head is atraumatic, normocephalic. Pupils equal, round. Sclerae is anicteric. NECK: Supple. No JVD. LUNGS: Diminished breath sounds. No intercostal retractions. HEART: Regular rate and rhythm. No murmur. ABDOMEN: Soft No tenderness. EXTREMITIES: 1+ pedal edema. No calf tenderness. NEUROLOGICAL: Patient is awake, alert and oriented x3. Assessment: Acute heart failure, echocardiogram is pending NSTEMI Hypertension Severe cardiomyopathy of unclear etiology Plan: Continue patient on Heparin gtt for total of 48 hours Continue IV Lasix 40 mg creased frequency to twice daily with an additional dose now Add Aldactone 25 mg daily Monitor I&O, daily weights, electrolytes and renal function Continue patient on aspirin 81 mg daily, atorvastatin 40 mg at bedtime and metoprolol 12.5 mg twice daily Schedule patient for cardiac catheterization tomorrow. Patient does have an allergy to iodine which causes itching. Further recommendations to follow based upon clinical course Nurse practitioner note has been reviewed, I agree with documented findings and plan of care. Patient was seen and examined. Objective - Vital Signs Vital signs: Vital Signs Temp 97.3 F L 04/05/23 11:25 Pulse 65 04/05/23 11:25 Resp 18 04/05/23 11:25 BP 105/65 04/05/23 11:25 Pulse Ox 99 04/05/23 11:25 FiO2 Intake & Output 04/04/23 04/05/23 04/05/23 18:59 06:59 18:59 Intake Total 448.696 462.661 1882 Output Total 3000 Balance 448.696 183.304 -1920 Weight 61.8 kg Intake: Intake, IV Titration 208.696 65.304 Amount Heparin Sod,Pork in 0.45% 208.696 65.304 NaCl 25,000 unit In 0.45 % NaCl 1 250ml.bag @ 12 UNITS/KG/HR 7.893 mls/hr IV .Q24H [facility] Rx#: [id number] Oral 242 [id number] Output: Urine 3000 Other: Voiding Method Toilet Toilet # Voids 2 3 - Labs CBC & Chem 7: 04/03/23 15:38 04/05/23 06:16 Labs: Abnormal Lab Results - Last 24 Hours (Table) 04/04/23 04/05/23 04/05/23 Range/Units 17:47 00:31 06:16 APTT 36.9 H 54.5 H 60.7 H (22.0-30.0) sec Potassium (3.5-5.1) mmol/L BUN (7-17) mg/dL Glucose (74-99) mg/dL AST (14-36) U/L Total Protein (6.3-8.2) g/dL Albumin (3.5-5.0) g/dL 04/05/23 Range/Units 06:16 APTT (22.0-30.0) sec Potassium 3.2 L (3.5-5.1) mmol/L BUN 19 H (7-17) mg/dL Glucose 110 H (74-99) mg/dL AST 44 H (14-36) U/L Total Protein 5.7 L (6.3-8.2) g/dL Albumin 3.0 L (3.5-5.0) g/dL
[2023-04-05] MEDS: SPIRONOLACTONE 25 MG TAB PO SCH (16:39)
[2023-04-05] MEDS: ATORVASTATIN 40 MG TAB PO SCH (19:49)
[2023-04-06] MEDS: ASPIRIN 81 MG PO SCH (05:54)
[2023-04-06] MEDS: HEPARIN SOD,PORK IN 0.45% NACL 25,000 UNIT in 0.45% NACL 1 250ML.BAG IV SCH ×2 (05:59→19:20)
[2023-04-06] MEDS: FAMOTIDINE 20 MG/2 ML VIAL IV SCH ×2 (06:00→19:57)
[2023-04-06] MEDS: LOSARTAN-HCTZ 50-12.5 MG 1 EACH TAB PO SCH (06:00)
[2023-04-06] MEDS ORDERED: ATORVASTATIN 80 MG TAB PO ONE (06:00)
[2023-04-06] MEDS ORDERED: ASPIRIN 325 MG TAB PO ONE (06:00)
[2023-04-06] MEDS: METOPROLOL TARTRATE 12.5 MG TAB PO SCH ×2 (06:00→19:57)
[2023-04-06 06:23] LABS: Glucose,Whole Blood 110 mg/dL (70-110)
[2023-04-06] MEDS ORDERED: diphenhydrAMINE 50 MG/ML 1 ML VIAL IVP ONE (07:00)
[2023-04-06] MEDS ORDERED: HEPARIN SODIUM,PORCINE (1 ML) 2,500 UNIT in SODIUM CHLORIDE 0.9% 250 ML IRRIGATION PRN (07:00)
[2023-04-06] MEDS ORDERED: HEPARIN SODIUM,PORCINE 10,000 UNIT in SODIUM CHLORIDE 0.9% 1,000 ML IRRIGATION PRN (07:00)
[2023-04-06] MEDS ORDERED: methylPREDNISolone SOD SUCCI 125 MG/2 ML VIAL IV ONE ×2 (07:00)
[2023-04-06 08:50] LABS: Basophils % (A) 1 %; Eosinophils # (A) 0.2 k/uL (0-0.7); Eosinophils % (A) 3 %; HGB 14.3 gm/dL (11.4-16.0); Hypochromasia Slight; Lymphocytes % (A) 33 %; MCH 29.8 pg (25.0-35.0); MCHC 31.7 g/dL (31.0-37.0); Mean Platelet Volume 9.4; Monocytes # (A) 0.5 k/uL (0-1.0); Monocytes % (A) 8 %; Neutrophils # (A) 3.2 k/uL (1.3-7.7); Neutrophils % (A) 53 %; Platelet Count 243 k/uL (150-450); RBC 4.79 m/uL (3.80-5.40); RDW 13.4 % (11.5-15.5); WBC 6.1 k/uL (3.8-10.6)
[2023-04-06] MEDS ORDERED: LIDOCAINE 1% INJ 10MG/ML (20 ML MDV) ONE (09:04)
[2023-04-06] MEDS ORDERED: VERAPAMIL 2.5 MG/ML 2 ML AMP ONE (09:05)
[2023-04-06] MEDS ORDERED: HEPARIN SODIUM 1,000 UN/ML (10ML VL) ONE (09:27)
[2023-04-06] MEDS ORDERED: fentaNYL (PF) 50 MCG/ML 2 ML AMP ONE (09:27)
[2023-04-06 09:38] LABS: ALT 33 U/L (4-34); AST 34 U/L (14-36); African American GFR (CKD) 66 (>60 ml/min/1.73 sqM); Albumin 3.3 g/dL (3.5-5.0); Alkaline Phosphatase 81 U/L (38-126); Anion Gap 1 mmol/L; Blood Urea Nitrogen 20 mg/dL (7-17); Calcium 8.8 mg/dL (8.4-10.2); Carbon Dioxide 37 mmol/L (22-30); Chloride 98 mmol/L (98-107); Glucose 100 mg/dL (74-99); Magnesium 1.7 mg/dL (1.6-2.3); Non-African American GFR(CKD) 57 (>60 ml/min/1.73 sqM); Potassium 3.1 mmol/L (3.5-5.1); Sodium 136 mmol/L (137-145); Total Bilirubin 0.9 mg/dL (0.2-1.3); Total Protein 6.2 g/dL (6.3-8.2)
[2023-04-06] MEDS ORDERED: MIDAZOLAM 2 MG/2 ML VIAL IVP ONE (09:54)
[2023-04-06] MEDS ORDERED: SODIUM CHLORIDE 0.9% 1,000 ML IV ONE (09:54)
[2023-04-06] MEDS ORDERED: fentaNYL (PF) 50 MCG/1 ML VIAL IVP ONE (09:54)
[2023-04-06] MEDS ORDERED: LIDOCAINE 1% INJ 10MG/ML (5 ML VIAL-PF) SQ ONE (10:01)
[2023-04-06] MEDS ORDERED: VERAPAMIL SYRINGE (5 MG/10 ML) INTRAARTER ONE (10:02)
[2023-04-06] MEDS ORDERED: HEPARIN SODIUM 1,000 UN/ML (10ML VL) IV ONE (10:04)
[2023-04-06] MEDS ORDERED: IOPAMIDOL-370 100ML BTL INJ ONE (10:08)
--- NOTE | 2023-04-06 10:14 | P.CARDCATH ---
Description of Procedure: PROCEDURES PERFORMED: Left heart catheterization, bilateral coronary angiography, ultrasound guided arterial access INDICATION: Cardiomyopathy CONSENT:I have discussed the risks, benefits and alternative therapies for the above-mentioned procedure and for both sedation/analgesia as well as necessary blood product administration, if indicated, as they pertain to this patient. The patient has indicated understanding and acceptance of the risks and procedures discussed. PROCEDURE: After the risks, benefits and alternatives of the above mentioned procedure explained in detail with the patient, informed consent was obtained. Patient was taken to the catheterization lab and prepped and draped in usual fashion. Ultrasound guidance was used to assess for arterial access. 1% lidocaine was used to anesthetize the right radial artery. A 6-Malawian sheath was placed in the right radial artery using modified Seldinger technique and ultrasound guidance. Left coronary angiography was performed with a 5-Malawian JL 3.5 catheter and right coronary angiography was performed with a 5-Malawian FR5 catheter in various views. A 5-Malawian FR5 catheter was inserted into the left ventricle and pressure measurements were obtained. The right radial sheath was removed and a TR band was placed with hemostasis achieved. The patient tolerate d the procedure well. Patient was transported back to the post catheterization holding area in stable condition. Conscious Sedation: Patient was monitored under the direct supervision of myself for conscious sedation using Versed and fentanyl for a total duration of 9 minutes HEMODYNAMICS: Aorta: 106/62 LV: 116/5, LVEDP 18 SELECTIVE CORONARY ARTERIOGRAPHY: LEFT MAIN: The left main is a large caliber vessel which bifurcates into the LAD and circumflex. There is no significant stenosis. LEFT ANTERIOR DESCENDING CORONARY ARTERY: LAD is a large caliber vessel which wraps around to the apex. There are mild luminal irregularities up to 10% stenosis. LEFT CIRCUMFLEX CORONARY ARTERY: Left circumflex is a moderate caliber vessel with mild luminal irregularities up to 10%. RIGHT CORONARY ARTERY: The right coronary artery is a large caliber vessel which gives off a PDA and PLV branch and is the dominant vessel. There is tended 20% mid RCA stenosis. FINAL IMPRESSION: 1. Mild luminal irregularities 2. Mildly elevated left sided filling pressures PLAN: 1. Aggressive risk factor modification per most recent ACC/AHA guidelines. 2. Follow-up in the office in 1-2 weeks.
[2023-04-06] MEDS: SPIRONOLACTONE 25 MG TAB PO SCH (11:51)
[2023-04-06] MEDS: FUROSEMIDE 10 MG/ML 4 ML VIAL IV SCH ×2 (11:51→19:57)
[2023-04-06] MEDS: POTASSIUM CHLORIDE ER 20 MEQ TAB.ER PO SCH ×3 (11:51→16:24)
[2023-04-06] MEDS: ATORVASTATIN 40 MG TAB PO SCH (19:57)
--- NOTE | 2023-04-06 23:02 | P.PN ---
Subjective This is a pleasant 67 years old female with no significant past medical history Presents because of shortness of breath and difficulty breathing on and off since last January, because she is not getting better and she cares for her family she decided to come to the hospital this time. Patient has occasional coughing but she denies chest pain She denies abdominal pain or other GI symptoms. No change in urine habits. No headache dizziness weakness numbness She denies smoking alcohol or illicit drugs. Vitals stable Labs are unremarkable including CBC INR, BMP, LFTs. Troponin is elevated at 0.4, 0.4, 0.56. ProBNP is elevated at 15 900 Influenza A and type B, RSV, SARS (coronavirus) are and detected Chest x-ray: No acute process with marked cardiomegaly, I reviewed chest x-ray myself and agree EKG showing sinus rhythm with no significant ST T changes rate at 78 but QTC elevated 536. 04/05/2023 Patient is awake alert No chest pain, dyspnea is better Remains on heparin drip Remains on IV Lasix once daily Creatinine is stable and within the reference range Echocardiogram showing low ejection fraction 15-20% with moderate mitral regu rgitation Metallurgical Specialist are planning for cardiac cath in 24-48 hours Plan discussed with patient and she is agreeable 04/06/2023 Patient is status post cardiac cath this morning showed mild disease, patient to continue medical management Patient denies chest pain or dyspnea. Patient feels very tired today and ready for discharge after the cardiac cath. KEEP MONITORING FOR NOW. HEMODYNAMICALLY STABLE. POTASSIUM 3.1, REPLACEMENT PROTOCOL ORDERED. CREATININE 1.0. CHEST SHE IS ON ASPIRIN 325 MG She still on IV Lasix 40 mg twice daily Objective - Vital Signs Vital signs: Vital Signs Temp 97.7 F 04/06/23 07:27 Pulse 65 04/06/23 14:14 Resp 16 04/06/23 14:14 BP 114/64 04/06/23 14:14 Pulse Ox 96 04/06/23 14:14 FiO2 Intake & Output 04/05/23 04/06/23 04/06/23 18:59 06:59 18:59 Intake Total 1320 500 132.075 Output Total 3000 1675 1000 Balance -1680 -1175 -867.925 Weight 57.2 kg Intake: IV 10 100 0.9 10 Intake, IV Titration 250 32.075 Amount Heparin Sod,Pork in 0.45% 250 32.075 NaCl 25,000 unit In 0.45 % NaCl 1 250ml.bag @ 12 UNITS/KG/HR 7.893 mls/hr IV .Q24H [facility] Rx#: [id number] Oral 1320 240 Output: Urine 3000 1675 1000 Other: Voiding Method Toilet Toilet Toilet # Voids 3 1 - Exam GENERAL: The patient is alert and oriented x3, not in any acute distress. Well developed, well nourished. HEENT: Pupils are round and equally reacting to light. EOMI. No scleral icterus. No conjunctival pallor. Normocephalic, atraumatic. No pharyngeal erythema. No thyromegaly. CARDIOVASCULAR: S1 and S2 present. No murmurs, rubs, or gallops. PULMONARY: Chest is clear to auscultation, no wheezing , no crackles. ABDOMEN: Soft, nontender, nondistended, normoactive bowel sounds. No palpable organomegaly. MUSCULOSKELETAL: No joint swelling or deformity. EXTREMITIES: No cyanosis, clubbing, or pedal edema. NEUROLOGICAL: Gross neurological examination did not reveal any focal deficits. SKIN: No rashes. no petechiae. - Labs CBC & Chem 7: 04/06/23 08:28 04/06/23 08:28 Labs: Abnormal Lab Results - Last 24 Hours (Table) 04/06/23 04/06/23 04/06/23 Range/Units 00:29 08:28 08:28 APTT 66.4 H 62.0 H (22.0-30.0) sec Sodium 136 L (137-145) mmol/L Potassium 3.1 L (3.5-5.1) mmol/L Carbon Dioxide 37 H (22-30) mmol/L BUN 20 H (7-17) mg/dL Glucose 100 H (74-99) mg/dL Total Protein 6.2 L (6.3-8.2) g/dL Albumin 3.3 L (3.5-5.0) g/dL Assessment and Plan Assessment: Acute non-STEMI post cardiac cath on 04/06 showing mild coronary disease acute CHF exacerbation, systolic with ejection fraction 15-20% Prolonged QTc Hypertension Bilateral pitting leg edema secondary to above Plan: heparin drip stopped Continue with aspirin Continue losartan/hydrochlorothiazide Continue IV Lasix 40 mg once daily daily Cardiology consult Labs and medication were reviewed.. Continue same treatment. Continue with symptomatic treatment. Resume home medication. Monitor labs and vitals. DVT and GI prophylaxis. Further recommendations as per clinical course of the patient DVT prophylaxis: heparin GI Prophylaxis: Pepcid Prognosis is guarded
[2023-04-07 08:46] LABS: Basophils % (A) 0 %; Eosinophils # (A) 0.1 k/uL (0-0.7); Eosinophils % (A) 1 %; HCT 46.4 % (34.0-46.0); HGB 15.1 gm/dL (11.4-16.0); Hypochromasia Slight; Lymphocytes # (A) 2.9 k/uL (1.0-4.8); Lymphocytes % (A) 29 %; MCH 30.8 pg (25.0-35.0); MCHC 32.5 g/dL (31.0-37.0); Mean Platelet Volume 9.2; Monocytes # (A) 0.7 k/uL (0-1.0); Monocytes % (A) 7 %; Neutrophils # (A) 6.1 k/uL (1.3-7.7); Neutrophils % (A) 62 %; Platelet Count 265 k/uL (150-450); RBC 4.88 m/uL (3.80-5.40); RDW 13.1 % (11.5-15.5); WBC 9.9 k/uL (3.8-10.6)
[2023-04-07 09:01] LABS: African American GFR (CKD) 55 (>60 ml/min/1.73 sqM); Anion Gap 6 mmol/L; Blood Urea Nitrogen 26 mg/dL (7-17); Calcium 9.1 mg/dL (8.4-10.2); Carbon Dioxide 32 mmol/L (22-30); Chloride 96 mmol/L (98-107); Glucose 166 mg/dL (74-99); Magnesium 1.8 mg/dL (1.6-2.3); Non-African American GFR(CKD) 48 (>60 ml/min/1.73 sqM); Potassium 3.8 mmol/L (3.5-5.1); Sodium 134 mmol/L (137-145)
[2023-04-07] MEDS: FUROSEMIDE 10 MG/ML 4 ML VIAL IV SCH ×2 (09:31→20:07)
[2023-04-07] MEDS: FAMOTIDINE 20 MG/2 ML VIAL IV SCH (09:31)
[2023-04-07] MEDS: SPIRONOLACTONE 25 MG TAB PO SCH (09:57)
[2023-04-07] MEDS: METOPROLOL TARTRATE 12.5 MG TAB PO SCH ×2 (09:57→20:07)
[2023-04-07] MEDS: HEPARIN SODIUM,PORCINE 5,000 UNIT/ML 1 ML VIAL SQ SCH ×2 (09:57→20:07)
[2023-04-07] MEDS: ASPIRIN 81 MG PO SCH (09:57)
[2023-04-07] MEDS: LOSARTAN-HCTZ 50-12.5 MG 1 EACH TAB PO SCH (09:57)
--- NOTE | 2023-04-07 16:48 | P.PN ---
Subjective Progress Note Date: 04/07/23 Reason for Consult (text): NSTEMI, HF History of present illness: History of present illness: This is a 67-year-old female patient with no previous cardiac history and has not had a cardiac workup in the past. She has a past medical history of hyperte nsion. Patient states that she has had difficulty breathing since mid January and thought it was mostly related to inhaling cold air. The shortness of breath comes and goes according to the coldest outside. She also complains of a sinus infection. She denies any fever or chills. She has had a cough. No production. She has had weight increase and also lower extremity edema. Patient also complains of leg cramps that are chronic but seem to be better this morning after she has had improvement of the edema. She denies any alcohol use. She was a smoker and quit in fall 2022. Patient seen today in the emergency center waiting for bed on the cardiac stepdown unit. We have been asked to evaluate patient for heart failure non-ST [place]. Patient has been started on IV Lasix 40 mg daily and heparin drip. EKG sinus rhythm with right bundle branch block, PVCs Chest x-ray: No acute finding. Marked cardiomegaly. Duplex ultrasound of the lower extremities negative for DVT. CBC, INR, electrolytes and renal function within normal limits. AST 42, ALT 40, alkaline phosphatase 77. Troponin 0.459, 0.477, 0.56. proBNP 15,900. Influenza A, influenza B, RSV, COVID-19 not detected. Home cardiac medications: Losartan/hydrochlorothiazide 50-12.5 mg daily 04/05 Patient is seen today in follow-up on the cardiac stepdown unit. Patient has been maintained on heparin drip as well as IV Lasix 40 mg daily. Yesterday, patient was started on aspirin, atorvastatin and metoprolol. Blood pressure 105/65, heart rate is in the 60s. Potassium 3.2, sodium 139, BUN 19 creatinine 0.99. AST 99. Triglycerides 60, cholesterol 140, LDL 70, HDL 49. Reviewed results of echocardiogram with the patient and recommendations for cardiac catheterization which patient is in agreement to perform. Echocardiogram reveals EF of 15 to 20%, severe left ventricular dilatation, severely reduced LV systolic function, severe left atrial dilatation, moderate functional mitral regurgitation, dilated IVC and is not collapsible. 2/2 Yesterday, patient underwent left heart catheterization with Dr. Womack which revealed mild luminal irregularities, mildly elevated left sided filling pressures. Plan is for aggressive risk factor modification and follow-up in 1 to 2 weeks in the office. Patient has been maintained on aspirin, Lipitor, IV Lasix losartan/hydrochlorothiazide, Lopressor and Aldactone. Medications reviewed and new cardiac prescriptions will be sent to her pharmacy. Patient is anxious to get home today. Physical examination: Gen: This is a 67-year-old female resting and appears to be in no acute distress VS: reviewed HEENT: Head is atraumatic, normocephalic. Pupils equal, round. Sclerae is anicteric. LUNGS: Diminished breath sounds. No intercostal retractions. HEART: Regular rate and rhythm. No murmur. EXTREMITIES: no pedal edema. No calf tenderness. NEUROLOGICAL: Patient is awake, alert and oriented x3. Assessment: Acute systolic heart failure, echocardiogram is pending NSTEMI, type II secondary to heart failure, cardiomyopathy, Takotsubo Hypertension Severe cardiomyopathy of unclear etiology Plan: Continue patient's current cardiac medications Add Jardiance 10 mg daily at home New cardiac prescriptions have been sent to her pharmacy Patient is cleared for discharge May follow-up with Dr. Womack in 1 to 2 weeks. Nurse practitioner note has been reviewed, I agree with documented findings and plan of care. Patient was seen and examined. Objective - Vital Signs Vital signs: Vital Signs Temp 97.7 F 04/07/23 12:00 Pulse 63 04/07/23 12:00 Resp 18 04/07/23 12:00 BP 114/75 04/07/23 12:00 Pulse Ox 97 04/07/23 12:00 FiO2 Intake & Output 04/06/23 04/07/23 04/07/23 18:59 06:59 18:59 Intake Total 252.075 240 20 Output Total 1000 800 Balance -747.925 -560 20 Weight 56.7 kg Intake: IV 100 20 Invasive Line 1 10 Invasive Line 2 10 Intake, IV Titration 32.075 Amount Heparin Sod,Pork in 0.45% 32.075 NaCl 25,000 unit In 0.45 % NaCl 1 250ml.bag @ 12 UNITS/KG/HR 7.893 mls/hr IV .Q24H [facility] Rx#: [id number] Oral 120 240 Output: Urine 1000 800 Other: Voiding Method Toilet Toilet Toilet - Labs CBC & Chem 7: 04/07/23 08:14 04/07/23 08:14 Labs: Abnormal Lab Results - Last 24 Hours (Table) 04/07/23 04/07/23 Range/Units 08:14 08:14 Hct 46.4 H (34.0-46.0) % Sodium 134 L (137-145) mmol/L Chloride 96 L (98-107) mmol/L Carbon Dioxide 32 H (22-30) mmol/L BUN 26 H (7-17) mg/dL Creatinine 1.18 H (0.52-1.04) mg/dL Glucose 166 H (74-99) mg/dL
[2023-04-07] MEDS: ATORVASTATIN 40 MG TAB PO SCH (20:07)
[2023-04-08] MEDS ORDERED: FAMOTIDINE 20 MG TAB PO SCH (09:00)
[2023-04-08] MEDS ORDERED: FAMOTIDINE 20 MG/2 ML VIAL IV SCH (09:00)
[2023-04-08] MEDS: ASPIRIN 81 MG PO SCH (09:01)
[2023-04-08] MEDS: SPIRONOLACTONE 25 MG TAB PO SCH ×2 (09:01→14:07)
[2023-04-08] MEDS: METOPROLOL TARTRATE 12.5 MG TAB PO SCH ×2 (09:01→14:07)
[2023-04-08] MEDS: FUROSEMIDE 10 MG/ML 4 ML VIAL IV SCH (09:02)
[2023-04-08] MEDS: HEPARIN SODIUM,PORCINE 5,000 UNIT/ML 1 ML VIAL SQ SCH (09:04)
[2023-04-08] MEDS: LOSARTAN-HCTZ 50-12.5 MG 1 EACH TAB PO SCH (09:06)
[2023-04-08 09:17] VITALS: RESP 17
--- NOTE | 2023-04-08 11:13 | P.PN ---
Subjective Progress Note Date: 04/07/23 67 years old female with no significant past medical history Presents because of shortness of breath and difficulty breathing on and off since last January, because she is not getting better and she cares for her family she decided to come to the hospital this time. Patient has occasional coughing but she denies chest pain She denies abdominal pain or other GI symptoms. No change in urine habits. No headache dizziness weakness numbness She denies smoking alcohol or illicit drugs. Vitals stable Labs are unremarkable including CBC INR, BMP, LFTs. Troponin is elevated at 0.4, 0.4, 0.56. ProBNP is elevated at 15 900 Influenza A and type B, RSV, SARS (coronavirus) are and detected Chest x-ray: No acute process with marked cardiomegaly, I reviewed chest x-ray myself and agree EKG showing sinus rhythm with no significant ST T changes rate at 78 but QTC elevated 536. Objective - Vital Signs Vital signs: Vital Signs Temp 97.6 F 04/08/23 08:10 Pulse 63 04/08/23 08:10 Resp 17 04/08/23 08:10 BP 103/67 04/08/23 08:10 Pulse Ox 97 04/08/23 08:10 FiO2 Intake & Output 04/07/23 04/08/23 04/08/23 18:59 06:59 18:59 Intake Total 740 260 250 Output Total 200 Balance 540 260 250 Weight 56.7 kg Intake: IV 20 20 10 Invasive Line 1 10 Invasive Line 2 10 20 10 Oral 720 240 240 Output: Urine 200 Other: Voiding Method Toilet Toilet Toilet - Exam GENERAL: The patient is alert and oriented x3, not in any acute distress. Well developed, well nourished. HEENT: Pupils are round and equally reacting to light. EOMI. No scleral icterus. No conjunctival pallor. Normocephalic, atraumatic. No pharyngeal erythema. No thyromegaly. CARDIOVASCULAR: S1 and S2 present. No murmurs, rubs, or gallops. PULMONARY: Chest is clear to auscultation, no wheezing , no crackles. ABDOMEN: Soft, nontender, nondistended, normoactive bowel sounds. No palpable organomegaly. MUSCULOSKELETAL: No joint swelling or deformity. EXTREMITIES: No cyanosis, clubbing, or pedal edema. NEUROLOGICAL: Gross neurological examination did not reveal any focal deficits. SKIN: No rashes. no petechiae. - Labs CBC & Chem 7: 04/07/23 08:14 04/07/23 08:14 Assessment and Plan Assessment: Acute non-STEMI post cardiac cath on 04/06 showing mild coronary disease acute CHF exacerbation, systolic with ejection fraction 15-20% Prolonged QTc Hypertension Bilateral pitting leg edema secondary to above Plan: heparin drip stopped Continue with aspirin Continue losartan/hydrochlorothiazide Continue IV Lasix 40 mg once daily daily Cardiology consult Labs and medication were reviewed.. Continue same treatment. Continue with symptomatic treatment. Resume home medication. Monitor labs and vitals. DVT and GI prophylaxis. Further recommendations as per clinical course of the patient DVT prophylaxis: heparin GI Prophylaxis: Pepcid Prognosis is guarded
--- NOTE | 2023-04-08 11:45 | P.PN ---
Subjective Progress Note Date: 04/08/23 Reason for Consult (text): NSTEMI, HF History of present illness: History of present illness: This is a 67-year-old female patient with no previous cardiac history and has not had a cardiac workup in the past. She has a past medical history of hyperte nsion. Patient states that she has had difficulty breathing since mid January and thought it was mostly related to inhaling cold air. The shortness of breath comes and goes according to the coldest outside. She also complains of a sinus infection. She denies any fever or chills. She has had a cough. No production. She has had weight increase and also lower extremity edema. Patient also complains of leg cramps that are chronic but seem to be better this morning after she has had improvement of the edema. She denies any alcohol use. She was a smoker and quit in fall 2022. Patient seen today in the emergency center waiting for bed on the cardiac stepdown unit. We have been asked to evaluate patient for heart failure non-ST SD. Patient has been started on IV Lasix 40 mg daily and heparin drip. EKG sinus rhythm with right bundle branch block, PVCs Chest x-ray: No acute finding. Marked cardiomegaly. Duplex ultrasound of the lower extremities negative for DVT. CBC, INR, electrolytes and renal function within normal limits. AST 42, ALT 40, alkaline phosphatase 77. Troponin 0.459, 0.477, 0.56. proBNP 15,900. Influenza A, influenza B, RSV, COVID-19 not detected. Home cardiac medications: Losartan/hydrochlorothiazide 50-12.5 mg daily 04/05 Patient is seen today in follow-up on the cardiac stepdown unit. Patient has been maintained on heparin drip as well as IV Lasix 40 mg daily. Yesterday, patient was started on aspirin, atorvastatin and metoprolol. Blood pressure 105/65, heart rate is in the 60s. Potassium 3.2, sodium 139, BUN 19 creatinine 0.99. AST 99. Triglycerides 60, cholesterol 140, LDL 70, HDL 49. Reviewed results of echocardiogram with the patient and recommendations for cardiac catheterization which patient is in agreement to perform. Echocardiogram reveals EF of 15 to 20%, severe left ventricular dilatation, severely reduced LV systolic function, severe left atrial dilatation, moderate functional mitral regurgitation, dilated IVC and is not collapsible. 2/2 Yesterday, patient underwent left heart catheterization with Dr. Womack which revealed mild luminal irregularities, mildly elevated left sided filling pressures. Plan is for aggressive risk factor modification and follow-up in 1 to 2 weeks in the office. Patient has been maintained on aspirin, Lipitor, IV Lasix losartan/hydrochlorothiazide, Lopressor and Aldactone. Medications reviewed and new cardiac prescriptions will be sent to her pharmacy. Patient is anxious to get home today. 04/08 Patient denies any new concerns. Blood pressure 103/67, heart rate 63, pulse ox 97% on room air. Patient has been ambulating the full length of the hallway without difficulty. Edema is improved. Physical examination: Gen: This is a 67-year-old female resting and appears to be in no acute distress VS: reviewed HEENT: Head is atraumatic, normocephalic. Pupils equal, round. Sclerae is anicteric. LUNGS: Diminished breath sounds. No intercostal retractions. HEART: Regular rate and rhythm. No murmur. EXTREMITIES: no pedal edema. No calf tenderness. NEUROLOGICAL: Patient is awake, alert and oriented x3. Assessment: Acute systolic heart failure, echocardiogram is pending NSTEMI, type II secondary to heart failure, cardiomyopathy, Takotsubo Hypertension Severe cardiomyopathy of unclear etiology Plan: Continue patient's current cardiac medications Add Jardiance 10 mg daily at home New cardiac prescriptions have been sent to her pharmacy Patient is cleared for discharge May follow-up with Dr. Womack in 1 to 2 weeks. Nurse practitioner note has been reviewed, I agree with documented findings and plan of care. Patient was seen and examined. Objective - Vital Signs Vital signs: Vital Signs Temp 97.6 F 04/08/23 08:10 Pulse 63 04/08/23 08:10 Resp 17 04/08/23 08:10 BP 103/67 04/08/23 08:10 Pulse Ox 97 04/08/23 08:10 FiO2 Intake & Output 04/07/23 04/08/23 04/08/23 18:59 06:59 18:59 Intake Total 740 260 250 Output Total 200 Balance 540 260 250 Weight 56.7 kg Intake: IV 20 20 10 Invasive Line 1 10 Invasive Line 2 10 20 10 Oral 720 240 240 Output: Urine 200 Other: Voiding Method Toilet Toilet Toilet - Labs CBC & Chem 7: 04/07/23 08:14 04/07/23 08:14
[2023-04-08 11:59] VITALS: BP 99/66; TEMP 97.9
[2023-04-08 15:57] VITALS: PULSE 63
--- NOTE | 2023-04-08 19:14 | P.DS ---
Providers Date of admission: 04/03/23 18:16 Expected date of discharge: 04/08/23 Attending physician: Artemio Reynoso Consults: 04/03/23 18:15 Consult Physician Urgent Consulting Provider: Mckinley Anderson Consult Reason/Comments: nstemi, heart failure Do you want consulting provider notified?: Yes Primary care physician: [facility] Course: 67 years old female with no significant past medical history Presents because of shortness of breath and difficulty breathing on and off since last January, because she is not getting better and she cares for her family she decided to come to the hospital this time. Patient has occasional coughing but she denies chest pain She denies abdominal pain or other GI symptoms. No change in urine habits. No headache dizziness weakness numbness She denies smoking alcohol or illicit drugs. Vitals stable Labs are unremarkable including CBC INR, BMP, LFTs. Troponin is elevated at 0.4, 0.4, 0.56. ProBNP is elevated at 15 900 Influenza A and type B, RSV, SARS (coronavirus) are and detected Chest x-ray: No acute process with marked cardiomegaly, I reviewed chest x-ray myself and agree EKG showing sinus rhythm with no significant ST T changes rate at 78 but QTC elevated 536. 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 Patient feels very tired today and ready for discharge after the cardiac cath. KEEP MONITORING FOR NOW. HEMODYNAMICALLY STABLE. POTASSIUM 3.1, REPLACEMENT PROTOCOL ORDERED. CREATININE 1.0. CHEST SHE IS ON ASPIRIN 325 MG She still on IV Lasix 40 mg twice daily 2/2 Yesterday, patient underwent left heart catheterization with Dr. Womack which revealed mild luminal irregularities, mildly elevated left sided filling pre ssures. Plan is for aggressive risk factor modification and follow-up in 1 to 2 weeks in the office. Patient has been maintained on aspirin, Lipitor, IV Lasix losartan/hydrochlorothiazide, Lopressor and Aldactone. Medications reviewed and new cardiac prescriptions will be sent to her pharmacy. Patient is anxious to get home today. 2/3 Patient denies any new concerns. Blood pressure 103/67, heart rate 63, pulse ox 97% on room air. Patient has been ambulating the full length of the hallway without difficulty. Edema is improved. Assessment: Acute systolic heart failure, echocardiogram is pending NSTEMI, type II secondary to heart failure, cardiomyopathy, Takotsubo Hypertension Severe cardiomyopathy of unclear etiology Plan: Continue patient's current cardiac medications Add Jardiance 10 mg daily at home New cardiac prescriptions have been sent to her pharmacy Patient is cleared for discharge May follow-up with Dr. Womack in 1 to 2 weeks. Patient Condition at Discharge: Serious Plan - Discharge Summary Discharge Rx Participant: No New Discharge Prescriptions: New Empagliflozin [Jardiance] 10 mg PO DAILY #90 tablet Metoprolol Tartrate [Lopressor] 12.5 mg PO BID #180 tab Spironolactone [Aldactone] 25 mg PO DAILY #90 tab Aspirin 81 mg PO DAILY tab Atorvastatin [Lipitor] 40 mg PO HS #90 tab Continue Cyanocobalamin [Vitamin B-12] 500 mcg PO DAILY Multivitamins, Thera [Multivitamin (formulary)] 1 tab PO DAILY Losartan/Hydrochlorothiazide [Losartan-Hctz 50-12.5 mg Tab] 1 tab PO DAILY Discharge Medication List Cyanocobalamin [Vitamin B-12] 500 mcg PO DAILY 04/03/23 [History] Losartan/Hydrochlorothiazide [Losartan-Hctz 50-12.5 mg Tab] 1 tab PO DAILY 04/03/23 [History] Multivitamins, Thera [Multivitamin (formulary)] 1 tab PO DAILY 04/03/23 [History] Aspirin 81 mg PO DAILY tab 04/07/23 [Rx] Atorvastatin [Lipitor] 40 mg PO HS #90 tab 04/07/23 [Rx] Empagliflozin [Jardiance] 10 mg PO DAILY #90 tablet 04/07/23 [Rx] Metoprolol Tartrate [Lopressor] 12.5 mg PO BID #180 tab 04/07/23 [Rx] Spironolactone [Aldactone] 25 mg PO DAILY #90 tab 04/07/23 [Rx] Follow up Appointment(s)/Referral(s): Emanuel Womack DO [STAFF PHYSICIAN] - 1 Week Christo Helms MD [Primary Care Provider] - 1-2 days Patient Instructions/Handouts: *Surgery [facility] - After Heart Catheterization - Sock And Stocking Ironer Instructions, Heart Attack (DC), Heart Failure (DC) Activity/Diet/Wound Care/Special Instructions: do not lift more than 10 pounds for 1 week do not submerge wrist in water for 1 week if any bleeding was to occur at puncture site apply pressure and return to ER Discharge Disposition: HOME SELF-CARE
== END 2023-04-08 15:28 | disposition home or self-care (01) | DRG 280 ==
LOC: EC 15:01 → 3SCARD 18:16
PROVIDERS: ADMIT Hospitalist; ATTEND Hospitalist
PROC: B2151ZZ Fluoroscopy of Left Heart using Low Osmolar Contrast (ICD-10-PCS; 2023-04-06)
PROC: 4A023N7 Measurement of Cardiac Sampling and Pressure, Left Heart, Percutaneous Approach (ICD-10-PCS; principal; 2023-04-06 10:00)
PROC: B2111ZZ Fluoroscopy of Multiple Coronary Arteries using Low Osmolar Contrast (ICD-10-PCS; 2023-04-06 10:00)
DX: I11.0 Hypertensive heart disease with heart failure (principal); I50.21 Acute systolic (congestive) heart failure; I21.A1 Myocardial infarction type 2; F32.A Depression, unspecified; I25.110 Atherosclerotic heart disease of native coronary artery with unstable angina pectoris; I45.10 Unspecified right bundle-branch block; I51.81 Takotsubo syndrome; Z79.82 Long term (current) use of aspirin; Z79.84 Long term (current) use of oral hypoglycemic drugs; Z79.899 Other long term (current) drug therapy; Z87.891 Personal history of nicotine dependence; Z91.041 Radiographic dye allergy status; Z91.040 Latex allergy status
CPT/HCPCS: 36415; 71046; 76937; 80048; 80053; 80061; 83605; 83735; 83880; 84484; 85025; 85610; 85730; 87636; 93005; 93306; 93458; 93970; 96365; 96366; 96375; 96376; 99291

== ENCOUNTER 2024-07-22 00:35 | Emergency (ER) | payer MEDICARE ==
[2024-07-22 00:49] VITALS: TEMP 98.3
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
[2024-07-22 01:45] VITALS: PULSE 89; RESP 22
[2024-07-22] MEDS: fentaNYL (PF) 50 MCG/ML 2 ML AMP IVP STA (01:48)
[2024-07-22] MEDS: FUROSEMIDE 10 MG/ML 4 ML VIAL IV STA (01:50)
[2024-07-22 02:01] LABS: Basophils # (A) 0.02 10*3/uL (0.00-0.10); Basophils % (A) 0.2 %; Eosinophils # (A) 0.02 10*3/uL (0.04-0.35); Eosinophils % (A) 0.2 %; HCT 46.2 % (37.2-46.3); HGB 14.8 g/dL (12.0-15.0); Lymphocytes # (A) 1.27 10*3/uL (0.90-5.00); Lymphocytes % (A) 12.4 %; MCH 31.6 pg (27.0-32.0); MCV 98.7 fL (80.0-97.0); Mean Platelet Volume 10.9 fL (9.5-12.2); Monocytes # (A) 0.72 10*3/uL (0.20-1.00); Neutrophils # (A) 8.16 10*3/uL (1.80-7.70); Neutrophils % (A) 79.9 %; Platelet Count 163 10*3/uL (140-440); RBC 4.68 10*6/uL (4.10-5.20); RDW 14.6 % (11.5-14.5); WBC 10.22 10*3/uL (4.50-10.00)
[2024-07-22 02:13] LABS: ALT 44 U/L (4-34); AST 94 U/L (14-36); African American GFR (CKD) 74 (>60 ml/min/1.73 sqM); Albumin 3.3 g/dL (3.5-5.0); Alkaline Phosphatase 104 U/L (38-126); Anion Gap 7 mmol/L; Blood Urea Nitrogen 22 mg/dL (7-17); Calcium 8.5 mg/dL (8.4-10.2); Carbon Dioxide 27 mmol/L (22-30); Chloride 101 mmol/L (98-107); Creatine Kinase 769 U/L (30-135); Glucose 105 mg/dL (74-99); Non-African American GFR(CKD) 64 (>60 ml/min/1.73 sqM); Potassium 4.5 mmol/L (3.5-5.1); Sodium 135 mmol/L (137-145); Total Bilirubin 1.7 mg/dL (0.2-1.3); Total Protein 6.2 g/dL (6.3-8.2)
[2024-07-22 02:16] LABS: INR 1.1 (<1.2); Prothrombin Time 12.3 sec (10.0-12.5)
[2024-07-22 02:22] LABS: NT-Pro-B-Type Natriuretic Pept 22300 pg/mL
[2024-07-22 02:30] LABS: Partial Thromboplastin Time 21.8 sec (22.0-30.0)
[2024-07-22 03:05] VITALS: BP 127/86
== END 2024-07-22 03:05 | disposition other institution (70) ==
LOC: EC 00:35
DX: S22.20XA Unspecified fracture of sternum, initial encounter for closed fracture (principal); S22.009A Unspecified fracture of unspecified thoracic vertebra, initial encounter for closed fracture; I50.9 Heart failure, unspecified; Z91.040 Latex allergy status; Z91.041 Radiographic dye allergy status; Z87.891 Personal history of nicotine dependence; V49.40XA Driver injured in collision with unspecified motor vehicles in traffic accident, initial encounter; Y92.410 Unspecified street and highway as the place of occurrence of the external cause
CPT/HCPCS: 36415; 94660; 83880; 80053; 82550; 84484; 85025; 85610; 85730; 99291; 96374; 96375; J3010; J1938

== ENCOUNTER 2024-08-21 10:39 | Emergency (ER) | payer MEDICARE ==
[2024-08-21 10:48] VITALS: TEMP 98.5
[2024-08-21 12:08] LABS: Basophils # (A) 0.02 10*3/uL (0.00-0.10); Basophils % (A) 0.4 %; Eosinophils # (A) 0.05 10*3/uL (0.04-0.35); Eosinophils % (A) 0.9 %; HCT 36.2 % (37.2-46.3); Lymphocytes # (A) 1.63 10*3/uL (0.90-5.00); MCH 32.6 pg (27.0-32.0); MCHC 32.6 g/dL (32.0-37.0); Mean Platelet Volume 9.6 fL (9.5-12.2); Monocytes # (A) 0.52 10*3/uL (0.20-1.00); Monocytes % (A) 9.2 %; Neutrophils % (A) 60.3 %; Platelet Count 222 10*3/uL (140-440); RBC 3.62 10*6/uL (4.10-5.20); RDW 20.1 % (11.5-14.5); WBC 5.63 10*3/uL (4.50-10.00)
[2024-08-21] MEDS: FAMOTIDINE 20 MG/2 ML VIAL IV STA (12:18)
[2024-08-21] MEDS: methylPREDNISolone SOD SUCCI 125 MG/2 ML VIAL IV STA (12:18)
[2024-08-21] MEDS: diphenhydrAMINE 50 MG/ML 1 ML VIAL IVP STA (12:18)
[2024-08-21 12:20] LABS: HGB 11.8 g/dL (12.0-15.0)
[2024-08-21 12:25] VITALS: RESP 18
[2024-08-21 12:25] LABS: ALT 28 U/L (4-34); AST 43 U/L (14-36); African American GFR (CKD) >90 (>60 ml/min/1.73 sqM); Albumin 3.4 g/dL (3.5-5.0); Alkaline Phosphatase 139 U/L (38-126); Anion Gap 6 mmol/L; Blood Urea Nitrogen 17 mg/dL (7-17); Calcium 8.7 mg/dL (8.4-10.2); Carbon Dioxide 22 mmol/L (22-30); Chloride 111 mmol/L (98-107); Glucose 109 mg/dL (74-99); Non-African American GFR(CKD) >90 (>60 ml/min/1.73 sqM); Potassium 4.5 mmol/L (3.5-5.1); Sodium 139 mmol/L (137-145); Total Bilirubin 1.2 mg/dL (0.2-1.3); Total Protein 6.5 g/dL (6.3-8.2)
[2024-08-21 12:29] LABS: Appearance,Urine Clear (Clear); Bilirubin,Urine Negative (Negative); Blood,Urine Negative (Negative); Color,Urine Yellow; Glucose,Urine (UA) Negative (Negative); Ketones,Urine Negative (Negative); Leukocyte Esterase,Urine Negative (Negative); Nitrite,Urine Negative (Negative); Protein,Urine Trace (Negative); Specific Gravity,Urine 1.012 (1.001-1.035)
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
[2024-08-21 14:46] VITALS: BP 119/90; PULSE 84
== END 2024-08-21 15:16 | disposition home or self-care (01) ==
LOC: EC 10:39
DX: S30.1XXA Contusion of abdominal wall, initial encounter (principal); Z91.040 Latex allergy status; Z91.041 Radiographic dye allergy status; Z87.891 Personal history of nicotine dependence; V89.2XXA Person injured in unspecified motor-vehicle accident, traffic, initial encounter; Y92.410 Unspecified street and highway as the place of occurrence of the external cause
CPT/HCPCS: 36415; 80053; 83605; 85025; 81003; 74177; 99284; 96374; 96375 ×2; J1200; Q9967; J2919; J1308

== ENCOUNTER → 2024-10-03 | Outpatient (CLI) | payer OTHER ==
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
== END | disposition home or self-care (01) ==
LOC: RADCTMAIN 09:35
PROVIDERS: ATTEND Surgery Vascular Surgery
DX: S31.109A Unspecified open wound of abdominal wall, unspecified quadrant without penetration into peritoneal cavity, initial encounter (principal); V89.2XXA Person injured in unspecified motor-vehicle accident, traffic, initial encounter
CPT/HCPCS: 74176